=== PATIENT | female | born 1960 | race Two or more races ===

== ENCOUNTER 2020-02-08 21:24 | Emergency (ER) | payer MEDICAID, OTHER ==
[2020-02-08] MEDS ORDERED: SODIUM CHLORIDE 0.9% 1,000 ML IV STA (21:41)
[2020-02-08] MEDS ORDERED: ONDANSETRON 4 MG/2 ML VIAL IVP STA (21:41)
--- NOTE | 2020-02-08 21:55 | ED Physician Documentation ---
History of Present Illness - Stated complaint Stated Complaint: N/V, HNECK/BACK PX, BILAT FOOT SWELLING - Chief complaint Chief Complaint: General - History obtained from History obtained from: Patient - Additonal information Additional information: Patient comes emergency department complaining of lightheadedness that was mild and started yesterday which has progressed to more severe today. Patient states she is also had low back pain, chills shakes, and nausea. She states she has a very mild amount of regurgitation of liquid, but otherwise has not vomited. She states that she has not had a cough or sore throat. No shortness of breath. No dysuria. No abdominal pain. Patient denies sick contacts. She is a diabetic, but states this is diet-controlled. She denies any other medical problems. Patient also adds that she has noted some mild swelling of her bilateral lower extremities. Review of Systems Ten Systems: 10 systems reviewed and negative Constitutional: reports: Chills Eyes: reports: Reviewed and negative Ears: reports: Reviewed and negative Nose: reports: Reviewed and negative Throat: reports: Reviewed and negative Cardiac: reports: Reviewed and negative. 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 - Present Medications Home Medications: Ambulatory Orders Medication Instructions Recorded Confirmed Ondansetron Odt [Zofran] 4 mg TL Q6H PRN #10 tablet 02/09/20 Famotidine [Pepcid] 20 mg PO BID #6 tablet 02/11/20 predniSONE [Prednisone] 60 mg PO DAILY #10 tablet 02/11/20 - Allergies Allergies/Adverse Reactions: Allergies Allergy/AdvReac Type Severity Reaction Status Date / Time aspirin AdvReac Rash Verified 02/11/20 07:36 Penicillins AdvReac Rash Verified 02/11/20 07:36 - Social History Does the pt smoke?: No Smoking Status: Never smoker Does the pt drink ETOH?: No Does the pt have substance abuse?: No - Immunizations Immunizations are current?: Yes - POLST Patient has POLST: No PD ED PE NORMAL - Vitals Vital signs reviewed: Yes - General General: Alert and oriented X 3, No acute distress - HEENT HEENT: Atraumatic, PERRL, EOMI, Moist mucous membranes - Neck Neck: Supple, no meningeal sign - Cardiac Cardiac: RRR, No murmur, Strong equal pulses - Respiratory Respiratory: No respiratory distress, Clear bilaterally - Abdomen Abdomen: Soft, Non tender, Non distended - Back Back: Other (Left CVA and lower back tenderness, mild.) - Derm Derm: Normal color, Warm and dry, No rash - Extremities Extremities: No deformity, Other (Mild nonpitting edema bilateral ankles and feet.) - Neuro Neuro: Alert and oriented X 3, Other (Grossly normal) - Psych Psych: Normal mood, Normal affect Results - Vitals Vitals: Oxygen O2 Source Room air - Labs Labs: Microbiology 02/08/20 23:10 Urine Culture - Final Urine,Clean Catch Escherichia Coli Laboratory Tests 02/08/20 02/08/20 02/08/20 22:00 22:00 22:00 WBC 5.8 RBC 4.87 Hgb 14.3 Hct 41.6 MCV 85.4 MCH 29.4 MCHC 34.4 RDW 11.7 L Plt Count 174 MPV 9.6 Neut # (Auto) 4.8 Lymph # (Auto) 0.5 L Mck[place] # (Auto) 0.2 Eos # (Auto) 0.1 Baso # (Auto) 0.0 Absolute Nucleated RBC 0.00 Nucleated RBC % 0.0 Sodium 132 L Potassium 4.1 Chloride 98 L Carbon Dioxide 24 Anion Gap 10.0 BUN 12 Creatinine 0.6 Estimated GFR (MDRD) 101 Glucose 287 H Lactic Acid Calcium 8.5 Total Bilirubin 0.7 AST 20 ALT 16 Alkaline Phosphatase 97 B-Natriuretic Peptide 56 Total Protein 7.6 Albumin 3.7 Globulin 3.9 Albumin/Globulin Ratio 0.9 L Lipase 28 Urine Color Urine Clarity Urine pH Ur Specific [place] Urine Protein Urine Glucose (UA) Urine Ketones Urine Occult Blood Urine Nitrite Urine Bilirubin Urine Urobilinogen Ur Leukocyte Esterase Urine RBC Urine WBC Ur Squamous Epith Cells Urine Bacteria Ur Microscopic Review Urine Culture Comments Coronavirus (PCR) Influenza A (Rapid) Influenza B (Rapid) 02/08/20 02/08/20 02/09/20 22:00 23:10 01:30 WBC RBC Hgb Hct MCV MCH MCHC RDW Plt Count MPV Neut # (Auto) Lymph # (Auto) [place] # (Auto) Eos # (Auto) Baso # (Auto) Absolute Nucleated RBC Nucleated RBC % Sodium Potassium Chloride Carbon Dioxide Anion Gap BUN Creatinine Estimated GFR (MDRD) Glucose Lactic Acid 1.2 Calcium Total Bilirubin AST ALT Alkaline Phosphatase B-Natriuretic Peptide Total Protein Albumin Globulin Albumin/Globulin Ratio Lipase Urine Color YELLOW Urine Clarity SL. CLOUDY Urine pH 6.0 Ur Specific [place] 1.020 Urine Protein 30 H Urine Glucose (UA) >=1000 H Urine Ketones 15 H Urine Occult Blood TRACE-INTA Urine Nitrite NEGATIVE Urine Bilirubin NEGATIVE Urine Urobilinogen 2 H Ur Leukocyte Esterase NEGATIVE Urine RBC 0-5 Urine WBC 4-5 Ur Squamous Epith Cells RARE Squamous Urine Bacteria Moderate H Ur Microscopic Review INDICATED Urine Culture Comments INDICATED Coronavirus (PCR) Influenza A (Rapid) Negative Influenza B (Rapid) Negative 02/09/20 01:30 WBC RBC Hgb Hct MCV MCH MCHC RDW Plt Count MPV Neut # (Auto) Lymph # (Auto) [place] # (Auto) Eos # (Auto) Baso # (Auto) Absolute Nucleated RBC Nucleated RBC % Sodium Potassium Chloride Carbon Dioxide Anion Gap BUN Creatinine Estimated GFR (MDRD) Glucose Lactic Acid Calcium Total Bilirubin AST ALT Alkaline Phosphatase B-Natriuretic Peptide Total Protein Albumin Globulin Albumin/Globulin Ratio Lipase Urine Color Urine Clarity Urine pH Ur Specific [place] Urine Protein Urine Glucose (UA) Urine Ketones Urine Occult Blood Urine Nitrite Urine Bilirubin Urine Urobilinogen Ur Leukocyte Esterase Urine RBC Urine WBC Ur Squamous Epith Cells Urine Bacteria Ur Microscopic Review Urine Culture Comments Coronavirus (PCR) NEGATIVE Influenza A (Rapid) Influenza B (Rapid) PD MEDICAL DECISION MAKING - ED course Complexity details: reviewed old records, reviewed results, re-evaluated patient, considered differential, d/w patient ED course: Patient was worked up with labs, as well as urinalysis, and patient was treated symptomatically with IV fluids and Zofran. The pt on re-evaluation was feeling much better after fluids. Her work-up was unremarkable, with UA showing a small amount of WBC and bacteria, but no LE or nitrites. I d/w pt that I have not found an infectious focus today. The urine has been cultured, and pt will be notified if it is positive. We have discussed home management of the sx, as well as the usual indications for return. Departure - Departure Disposition: 01 Home, Self Care Clinical Impression: Dehydration, Chills (without fever) Condition: Stable Instructions: ED Dehydration Prescriptions: Ondansetron Odt [Zofran] 4 mg TL Q6H PRN #10 tablet PRN Reason: Nausea / Vomiting Comments: Your tests looked quite good, other than your blood sugar being elevated, I did not show any signs of infection. Your coated and influenza tests are still pending, but the likelihood of these being positive is low, as your symptoms are not specifically indicative of infection with either of these viruses. It is possible that you are fighting off an many common viruses that go around, or your symptoms may have been completely due to dehydration. You do not have a urinary tract infection/kidney infection, although this was originally suspected. Your urine actually looks quite good. Please be sure you drink plenty of fluid at home. You may take the nausea medicine, as needed. Please follow-up with your primary care physician if you are not feeling better in the next few days. You will be notified if your COVID test is positive. Discharge Date/Time: 02/09/20 02:14
[2020-02-08 22:06] LABS: BASOPHILS % (AUTO) 0.3 %; EOSINOPHILS # (AUTO) 0.1 10^3/uL (0.0-0.7); EOSINOPHILS % (AUTO) 1.7 %; HGB - HEMOGLOBIN 14.3 g/dL (12.0-16.0); LYMPHOCYTES # (AUTO) 0.5 10^3/uL (1.5-3.5); MEAN CORPUSCULAR HEMOGLOBIN 29.4 pg (27.0-31.0); MEAN CORPUSCULAR HGB CONC 34.4 g/dL (32.0-36.0); MEAN CORPUSCULAR VOLUME 85.4 fL (81.0-99.0); MEAN PLATELET VOLUME 9.6 fL (7.9-10.8); MONOCYTES # (AUTO) 0.2 10^3/uL (0.0-1.0); MONOCYTES % (AUTO) 3.1 %; NEUTROPHILS # (AUTO) 4.8 10^3/uL (1.5-6.6); NEUTROPHILS % (AUTO) 83.3 %; PLT - PLATELET COUNT 174 10^3/uL (130-450); RED BLOOD COUNT 4.87 10^6/uL (4.20-5.40); RED CELL DISTRIBUTION WIDTH 11.7 % (12.0-15.0); WHITE BLOOD COUNT 5.8 x10^3/uL (4.8-10.8)
[2020-02-08 22:19] LABS: ALBUMIN 3.7 g/dL (3.2-5.5); ALBUMIN/GLOBULIN RATIO 0.9 (1.0-2.2); BILIRUBIN,TOTAL 0.7 mg/dL (0.2-1.0); CALCIUM 8.5 mg/dL (8.5-10.3); CREATININE 0.6 mg/dL (0.4-1.0); TOTAL PROTEIN 7.6 g/dL (6.7-8.2)
[2020-02-08 23:21] LABS: BILIRUBIN,URINE NEGATIVE (NEGATIVE); CLARITY,URINE SL. CLOUDY (CLEAR); GLUCOSE, URINE (UA) >=1000 mg/dL (NEGATIVE); KETONES,URINE (UA) 15 mg/dL (NEGATIVE); LEUKOCYTE ESTERASE, URINE NEGATIVE (NEGATIVE); NITRITE,URINE NEGATIVE (NEGATIVE); OCCULT BLOOD,URINE TRACE-INTA (NEGATIVE); PROTEIN,URINE 30 mg/dL (NEGATIVE); UROBILINOGEN,URINE 2 E.U./dL (NORMAL)
[2020-02-08 23:28] LABS: BACTERIA,URINE Moderate /HPF (None Seen); RBC,URINE 0-5 /HPF (0-5); SQUAMOUS EPITHELIAL CELL,UR RARE Squamous (<= Few)
[2020-02-09 02:09] VITALS: BP 132/92
== END 2020-02-09 02:14 | disposition home or self-care (01) ==
LOC: ED 21:24
DX: E86.0 Dehydration (principal); R68.83 Chills (without fever); R11.0 Nausea; E11.65 Type 2 diabetes mellitus with hyperglycemia; Z11.59 Encounter for screening for other viral diseases; M54.5 Low back pain
CPT/HCPCS: 36415; 80053; 81001; 81003; 81599; 83605; 83690; 83880; 85025; 87077; 87086; 87181; 87275; 87276; 96361; 96374; 99284

== ENCOUNTER 2020-02-11 07:27 | Emergency (ER) | payer MEDICAID ==
[2020-02-11 07:36] VITALS: BP 137/71
[2020-02-11] MEDS ORDERED: DEXAMETHASONE 10 MG/ML VIAL IM STA (07:47)
[2020-02-11] MEDS ORDERED: ONDANSETRON ODT 4 MG TABLET TL STA (07:47)
[2020-02-11] MEDS ORDERED: FAMOTIDINE 20 MG TABLET PO STA (07:47)
--- NOTE | 2020-02-11 07:55 | ED Physician Documentation ---
History of Present Illness - Stated complaint Stated Complaint: RASH/ALLERGIC REACTION - Chief complaint Chief Complaint: Wound - History obtained from History obtained from: Patient - Additonal information Additional information: Patient comes emergency department complaining of hives that started yesterday evening. She states that she does not know exactly what caused it. She has not used any new soaps or lotions, and states that everything she ate yesterday she has eaten before. She does state that she has some Ramen noodles prior to onset of the rash, but that she only ate a little bit because she has been sick recently with nausea and has not regained her appetite completely. Patient states she ate 2 bites of noodles and drink the broth and then began to feel nauseated. She states she vomited just a slight bit of fluid from her stomach. The rash began sometime after this. Patient began to notice itching on her leg and then this progressed to her medial thighs, trunk, and neck. Patient has also noticed a little bit on her arms. No oropharyngeal edema. Patient states that she used to get hives regularly as a child, but that this stopped when she was 10 years old. She states she has had only mild reactions since but never one this extensive. Patient has taken Benadryl at home which she is found to be only mildly helpful. No other complaints at this time. Review of Systems Ten Systems: 10 systems reviewed and negative Constitutional: reports: Reviewed and negative Eyes: reports: Reviewed and negative Ears: reports: Reviewed and negative Nose: reports: Reviewed and negative Throat: reports: Reviewed and negative Cardiac: reports: Reviewed and negative Respiratory: reports: Reviewed and negative GI: reports: Reviewed and negative : reports: Reviewed and negative Skin: reports: Rash Musculoskeletal: reports: Reviewed and negative Neurologic: reports: Reviewed and negative Psychiatric: reports: Reviewed and negative Endocrine: reports: Reviewed and negative Immunocompromised: reports: Reviewed and negative PD PAST MEDICAL HISTORY - Past Medical History Past Medical History: Yes Endocrine/Autoimmune: Type 2 diabetes GI: Ulcers - Past Surgical History 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 - Present Medications Home Medications: Ambulatory Orders Medication Instructions Recorded Confirmed Ondansetron Odt [Zofran] 4 mg TL Q6H PRN #10 tablet 02/09/20 Famotidine [Pepcid] 20 mg PO BID #6 tablet 02/11/20 predniSONE [Prednisone] 60 mg PO DAILY #10 tablet 02/11/20 - Allergies Allergies/Adverse Reactions: Allergies Allergy/AdvReac Type Severity Reaction Status Date / Time aspirin AdvReac Rash Verified 02/11/20 07:36 Penicillins AdvReac Rash Verified 02/11/20 07:36 - Social History Does the pt smoke?: No Smoking Status: Never smoker Does the pt drink ETOH?: No Does the pt have substance abuse?: No - Immunizations Immunizations are current?: Yes - POLST Patient has POLST: No PD ED PE NORMAL - Vitals Vital signs reviewed: Yes - General General: Alert and oriented X 3, No acute distress - HEENT HEENT: Atraumatic, PERRL, EOMI, Moist mucous membranes, Other (No oral pharyngeal edema.) - Neck Neck: Supple, no meningeal sign - Cardiac Cardiac: RRR, No murmur, Strong equal pulses - Respiratory Respiratory: No respiratory distress, Clear bilaterally, Other (No stridor. Respirations nonlabored.) - Abdomen Abdomen: Soft, Non tender, Non distended - Derm Derm: Warm and dry, Other (Coalesced urticaria noted over patient's anteromedial thighs, diffusely about the patient's trunk, bilateral proximal arms, and anterior neck.) - Extremities Extremities: No deformity, No edema, No calf tenderness / cord - Neuro Neuro: Alert and oriented X 3, Normal speech - Psych Psych: Normal mood, Normal affect Results - Vitals Vitals: Vital Signs - 24 hr 02/11/20 07:29 Temperature 35.9 C L Heart Rate 90 Respiratory 16 Rate Blood Pressure 137/71 H O2 Saturation 99 Oxygen O2 Source Room air PD MEDICAL DECISION MAKING - ED course Complexity details: considered differential, d/w patient ED course: The patient had just had Benadryl 1 hour ago and so she was given Pepcid and IM Decadron. She was also given a dose of Zofran as she has been nauseated. I discussed with the patient that I am not sure what has caused her allergic reaction--it could be the Ramen noodles, although she has had these before with no problem. I encouraged her to keep a journal of exposures, should this happen again, so she can look for a common thread. The patient states she is in the process of getting a primary care physician and I have advised her that it is important that she do this, given her diabetes. Given the patient prescriptions for prednisone and for Pepcid for at home, to take with her Benadryl. We have discussed home management of the symptoms, as well as usual indications for return Departure - Departure Disposition: 01 Home, Self Care Clinical Impression: Allergic reaction Qualifiers: Encounter type: initial encounter Qualified Code(s): T78.40XA - Allergy, u nspecified, initial encounter Condition: Stable Instructions: ED Allergic Reaction General Other Prescriptions: Famotidine [Pepcid] 20 mg PO BID #6 tablet predniSONE [Prednisone] 60 mg PO DAILY #10 tablet Comments: It is not clear what is caused her allergic reaction today. It is most likely something you ate or otherwise took into your body, based on the general nature of the rash and its widespread. It is recommended that you keep a record of everything you were exposed to the day that your reaction happened. Keep this record in case you have another reaction, see you can compare exposures at that time. You may continue to take 25 to 50 mg of Benadryl every 4-6 hours as needed for the allergic rash. You should also take prednisone and Pepcid along with the Benadryl to further combat the reaction. If you begin to develop swelling of your tongue or in your throat, please return to the emergency department immediately.
== END 2020-02-11 08:45 | disposition home or self-care (01) ==
LOC: ED 07:27
DX: L50.0 Allergic urticaria (principal); T78.40XA Allergy, unspecified, initial encounter; X58.XXXA Exposure to other specified factors, initial encounter; R11.0 Nausea; E11.9 Type 2 diabetes mellitus without complications
CPT/HCPCS: 96372; 99283; 99284; A9270; Q0162

== ENCOUNTER 2020-05-28 15:15 | Emergency (ER) | payer MEDICAID ==
[2020-05-28 15:22] VITALS: BP 151/82
--- NOTE | 2020-05-28 15:41 | ED Physician Documentation ---
PD HPI LOWER EXT INJURY - Stated complaint Stated Complaint: LEG INJ - Chief complaint Chief Complaint: Trauma Ext - History obtained from History obtained from: Patient - History of Present Illness PD HPI LOW EXT INJURY LOCATION: Right, Knee, Lower leg Type of injury: Fall, Twist (she states she missed step and fell to side/forward with twisting of right knee/lower leg and impacted the ground with lateral knee. Pain in lateral knee and side of lower leg. Denies other injury. Did not strike head.) Where injury occurred: Home Timing - onset: Today Timing - details: Abrupt onset, Still present (hurts with walking and with bending knee.) Worsened by: Moving, Palpating (lateral knee area.) Associated symptoms: No: Weakness, Numbness, Swelling Similar symptoms before: Has not had sx before Review of Systems Constitutional: denies: Fever Nose: denies: Rhinorrhea / runny nose, Congestion Throat: denies: Sore throat Respiratory: denies: Cough Skin: denies: Abrasion (s), Laceration (s) Musculoskeletal: denies: Joint swelling Neurologic: denies: Focal weakness, Numbness, Altered mental status, Headache, Head injury, LOC PD PAST MEDICAL HISTORY - Past Medical History Cardiovascular: None Respiratory: None Neuro: None Endocrine/Autoimmune: Type 2 diabetes (diet controlled) GI: Ulcers Musculoskeletal: None - Past Surgical History 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 - Present Medications Home Medications: Ambulatory Orders Medication Instructions Recorded Confirmed Ondansetron Odt [Zofran] 4 mg TL Q6H PRN #10 tablet 02/09/20 Famotidine [Pepcid] 20 mg PO BID #6 tablet 02/11/20 predniSONE [Prednisone] 60 mg PO DAILY #10 tablet 02/11/20 Hydrocodone/Acetaminophen 1 each PO Q6H PRN #10 tablet 05/28/20 [Hydrocodone-Acetamin 5-325 mg] - Allergies Allergies/Adverse Reactions: Allergies Allergy/AdvReac Type Severity Reaction Status Date / Time aspirin AdvReac Rash Verified 05/28/20 15:18 Penicillins AdvReac Rash Verified 05/28/20 15:18 - Social History Does the pt smoke?: No Smoking Status: Never smoker Does the pt drink ETOH?: No Does the pt have substance abuse?: No - Immunizations Immunizations are current?: Yes - POLST Patient has POLST: No PD ED PE NORMAL - Vitals Vital signs reviewed: Yes - General General: Alert and oriented X 3, No acute distress, Well developed/nourished, Other (has her own pair of crutches) - Derm Derm: Normal color, Warm and dry - Extremities Extremities: Other (right lateral knee focally tender. Cruciate testing without pain nor laxity. Valgus stress does not hurt medially. Does cause some lateral pain. Rotation of lower leg passively causes some pain laterally. Hamstrings not tender. No knee effusion. Mid fibular area with some tenderness. Ankle not tendr) - Neuro Neuro: Alert and oriented X 3, No motor deficit, No sensory deficit, Normal speech Results - Vitals Vitals: Vital Signs - 24 hr 05/28/20 15:19 Temperature 36.5 C Heart Rate 88 Respiratory 16 Rate Blood Pressure 151/82 H O2 Saturation 99 Oxygen O2 Source Room air - Rads (name of study) tib/fib right Radiology: Prelim report reviewed (No fractures), EMP read contemporaneously (I think there is nondisplaced avulsion fracture off lateral part of the proximal fibular head. ), See rad report PD MEDICAL DECISION MAKING - ED course Complexity details: reviewed results (Radiologist says no fractures, but I think there is a nondisplaced fracture off the proximal fibular head. It would be treated with knee brace and not needing more aggresively. ), considered differential, d/w patient Departure - Departure Disposition: 01 Home, Self Care Clinical Impression: Avulsion of head of fibula Knee strain Qualifiers: Encounter type: initial encounter Laterality: right Qualified Code(s): S86.911A - Strain of unspecified muscle(s) and tendon(s) at lower leg level, right leg, initial encounter Accidental fall Qualifiers: Encounter type: initial encounter Qualified Code(s): W19.XXXA - Unspecified fall, initial encounter Condition: Stable Record reviewed to determine appropriate education?: Yes Instructions: ED Sprain Knee Follow-Up: Eusbeio Stroud MD [Provider Admit Priv/Credential] - Prescriptions: Hydrocodone/Acetaminophen [Hydrocodone-Acetamin 5-325 mg] 1 each PO Q6H PRN #10 tablet PRN Reason: Pain Comments: Use the knee immobilizer when up and around for the next couple of weeks. Crutches as needed for partial weightbearing to help support. Tylenol 4 times a day for pain. Add pain medicine if needed. This is likely a knee strain of the ligaments and muscles. On x-ray there is a possibility of a small avulsion fracture off the head of the fibula. This would get treated similarly with a knee brace, but could take a few weeks for healing. Recheck with Ortho in about 8-10 days to ensure this is healing well. Call Saturday for an appt. Discharge Date/Time: 05/28/20 17:06
[2020-05-28] MEDS ORDERED: ACETAMINOPHEN 325 MG TABLET PO STA (15:52)
[2020-05-28] MEDS ORDERED: IBUPROFEN 600 MG TABLET PO STA (15:52)
--- NOTE | 2020-05-28 16:24 | XRAY Report ---
PROCEDURE: Tib/Fib RT INDICATIONS: fall with twisting lower leg; pain lateral knee/fib TECHNIQUE: 2 views of the tibia and fibula were acquired. COMPARISON: None available FINDINGS: Bones: No fractures or dislocations. No suspicious bony lesions. Soft tissues: No suspicious soft tissue calcifications or masses. A small joint effusion is seen. IMPRESSION: Small joint effusion. No displaced fractures are seen on this plain film. In this patient with a given history of trauma, please correlate with focal tenderness. If clinically appropriate, please consider a short-term follow-up plain films series versus a dedicated CT study. Reviewed by: Ervin Luis MD on 05/28/2020 3:23 PM [facility] Approved by: Ervin Luis MD on 05/28/2020 3:23 PM [facility] Station ID: [id number]
== END 2020-05-28 17:06 | disposition home or self-care (01) ==
LOC: ED 15:15
DX: S86.911A Strain of unspecified muscle(s) and tendon(s) at lower leg level, right leg, initial encounter (principal); W10.9XXA Fall (on) (from) unspecified stairs and steps, initial encounter; X50.1XXA Overexertion from prolonged static or awkward postures, initial encounter; Y92.009 Unspecified place in unspecified non-institutional (private) residence as the place of occurrence of the external cause; E11.9 Type 2 diabetes mellitus without complications
CPT/HCPCS: 73590; 99283; A9270

== ENCOUNTER 2021-03-15 19:32 | Emergency (ER) | payer MEDICAID ==
[2021-03-15] MEDS ORDERED: methocarbamoL 500 MG TABLET PO STA (20:16)
[2021-03-15] MEDS ORDERED: KETOROLAC 60 MG/2 ML VIAL IM STA (20:16)
[2021-03-15] MEDS ORDERED: HYDROmorphone 1 MG/ML CARPUJECT IM STA (20:16)
--- NOTE | 2021-03-15 20:30 | ED Physician Documentation ---
PD HPI BACK PAIN - Stated complaint Stated Complaint: back px,swollen & numb feet - Chief complaint Chief Complaint: Back Pain - History obtained from History obtained from: Patient - History of Present Illness Timing - onset: Chronic Pain level max: 10 Pain level now: 10 Location: Upper, Mid, Lower, Right, Left Quality: Pain, Spasm Associated symptoms: No: Fever, Weakness, Numbness, Incontinent of urine, Unable to urinate, Hematuria, Incontinent of stool Improves with: Rest Worsened by: Movement Contributing factors: No: Lifting, Twisting, Trauma, Anticoagulated, Cancer, IVDA, Out of meds Recently seen: Not recently seen - Additional information Additional information: Patient is a 61-year-old female who presents to the emergency department with back pain and spasm. Worsening over the past 3 days. She states she has had chronic back pain since she was 6 months old. She states that she is constantly lifting and twisting. Does not recall any specific injury this time. She states that she has not taken anything for the pain at home because she is allergic to aspirin. Worse with movement, better with rest. She has chronic numbness in her bilateral feet as well. This is not new. It is unchanged from prior. No loss of bowel or bladder control. 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 : None HEENT: None Psych: None Musculoskeletal: None Derm: None - Past Surgical History Past Surgical History: Yes /SUPERVISOR INSTRUMENT REPAIR: Tubal ligation - Present Medications Home Medications: Ambulatory Orders Medication Instructions Recorded Confirmed Ibuprofen [Motrin] 800 mg PO Q8H PRN #30 tablet 03/15/21 Oxycodone HCl/Acetaminophen 1 - 2 each PO Q6H PRN #14 tablet 03/15/21 [Percocet 5-325 mg Tablet] methocarbamoL [Robaxin] 500 mg PO Q6H PRN #20 tablet 03/15/21 - Allergies Allergies/Adverse Reactions: Allergies Allergy/AdvReac Type Severity Reaction Status Date / Time aspirin AdvReac Rash Verified 03/15/21 19:43 Penicillins AdvReac Rash Verified 03/15/21 19:43 - Social History Does the pt smoke?: No Smoking Status: Never smoker Does the pt drink ETOH?: No Does the pt have substance abuse?: No - Immunizations Immunizations are current?: Yes - POLST Patient has POLST: No PD ED PE NORMAL - Vitals Vital signs reviewed: Yes - General General: Alert and oriented X 3, No acute distress, Well developed/nourished - HEENT HEENT: PERRL, Moist mucous membranes - Neck Neck: Supple, no meningeal sign - Cardiac Cardiac: RRR, Strong equal pulses - Respiratory Respiratory: No respiratory distress, Clear bilaterally - Abdomen Abdomen: Soft, Non tender, Non distended - Back Back: No spinal TTP (No midline tenderness to palpation or percussion along the cervical, thoracic or lumbar spines. There is para spinal spasm in the mid to lower thoracic and upper to mid lumbar spines.) - Derm Derm: Warm and dry, No rash - Extremities Extremities: No deformity - Neuro Neuro: Alert and oriented X 3, No motor deficit, No sensory deficit, Other (Normal bilateral lower extremity patellar and ankle jerk reflexes. Normal great toe extension bilaterally. no saddle anesthesia) - Psych Psych: Normal mood, Normal affect Results - Vitals Vitals: Vital Signs - 24 hr 03/15/21 03/15/21 03/15/21 19:37 20:07 21:00 Temperature 36.8 C Heart Rate 103 H 98 94 Respiratory 18 17 16 Rate Blood Pressure 183/80 H 162/82 H 170/82 H O2 Saturation 99 99 94 03/15/21 03/15/21 21:12 21:37 Temperature Heart Rate 90 Respiratory 15 15 Rate Blood Pressure 152/72 H O2 Saturation 95 Oxygen O2 Source Room air - Rads (name of study) Thoracic spine x-ray Radiology: Final report received, EMP read contemporaneously, See rad report Lumbar spine x-ray Radiology: Prelim report reviewed, EMP read contemporaneously, See rad report PD MEDICAL DECISION MAKING - ED course Complexity details: reviewed results, re-evaluated patient, considered differential (No cauda equina, no spinal epidural abscess, no fracture, no aortic dissection or evidence of aneursym rupture), d/w patient, d/w family ED course: Patient was given Toradol, Dilaudid and Robaxin. Pain greatly improved. Ambulating well. Appears to have chronic back pain. No acute findings on x- ray. We will place on pain medication for home and have her follow-up with her doctor for further care. May benefit from physical therapy. I am prescribing a short course of short-acting opioid pain medication for this patient. I have reviewed the patients BACK END ENGINEER and no concerning findings were noted. I have discussed that the opioids are for short term therapy only, and will not be refilled from the ED. patient counseled regarding signs and symptoms for which I believe and urgent re-evaluation would be necessary. Patient with good understanding of and agreement to plan and is comfortable going home at this time This document was made in part using voice recognition software. While efforts are made to proofread this document, sound alike and grammatical errors may occur. Departure - Departure Disposition: Home, Self Care Clinical Impression: Back spasm Condition: Good Instructions: ED Spasm Back No Trauma Follow-Up: your,doctor in 1 week [Other] Prescriptions: Ibuprofen [Motrin] 800 mg PO Q8H PRN #30 tablet PRN Reason: PAIN &/OR FEVER Oxycodone HCl/Acetaminophen [Percocet 5-325 mg Tablet] 1 - 2 each PO Q6H PRN #14 tablet PRN Reason: pain methocarbamoL [Robaxin] 500 mg PO Q6H PRN #20 tablet PRN Reason: muscle spasm Comments: Follow-up with your doctor for further care. You may benefit from physical therapy. Continue to gently stretch your back at home. I am prescribing a short course of narcotic pain medication for you. These are potentially dangerous and addictive medications that should be used carefully. These medications may constipate you. Take an uknr-xjx-lfomdbd stool softener (docusate) twice daily with plenty of water while taking these medications. If you go 24 hours without a bowel movement, take gllm-npt-payqkom miralax, per package instructions. Do not drink or drive while taking these medications. If you received narcotic or sedating medications while in the emergency department, do not drive for 24 hours. Store this medication in a safe, secure place and out of reach of children. It is a violation of federal law to give or sell this medication to another person or to use in a manner other than prescribed. The ED will not refill narcotic prescriptions, including prescriptions lost or stolen. To dispose of unwanted medications: 1. [facility] at [address] in [place] has a medication drop box. They accept prescription medications (in pill form) Saturday through Saturday 9:00 a.m. to 5:00 p.m. 2. The [facility] [employer] accepts prescription medications (in pill form only) for disposal year round. Call for more information. 3. Contact the [facility] for the next [facility] sponsored prescription drug collection event. , [phone], or [phone];
[2021-03-15 21:39] VITALS: BP 152/72
--- NOTE | 2021-03-15 21:50 | XRAY Report ---
PROCEDURE: Thoracic Spine 2 View INDICATIONS: back pain TECHNIQUE: 3 views of the thoracic spine were acquired. COMPARISON: None. FINDINGS: Bones: No fractures or dislocations. Scattered multilevel endplate spurring and diffuse facet arthro king. No definite disc space narrowing Soft tissues: No paravertebral stripe thickening. IMPRESSION: No fracture. Diffuse spondylitic changes. Reviewed by: Wili East MD on 03/15/2021 9:48 PM PDT Approved by: Wili East MD on 03/15/2021 9:48 PM PDT Station ID: [id number]
--- NOTE | 2021-03-15 21:51 | XRAY Report ---
PROCEDURE: Lumbar Spine 2 View INDICATIONS: back pain TECHNIQUE: 2 views of the lumbar spine were acquired. COMPARISON: None. FINDINGS: No acute fracture identified. Scattered multilevel endplate spurring and diffuse facet arthropathy. Trace anterolisthesis of L4 on L5. No definite disc space narrowing. Minimal levocurvature. IMPRESSION: Minimal levocurvature and trace anterolisthesis of L4 on L5. Minimal lower lumbar spondylosis. Reviewed by: Wili East MD on 03/15/2021 9:50 PM PDT Approved by: Wili East MD on 03/15/2021 9:50 PM PDT Station ID: [id number]
== END 2021-03-15 22:10 | disposition home or self-care (01) ==
LOC: ED 19:32
DX: M62.830 Muscle spasm of back (principal); M47.814 Spondylosis without myelopathy or radiculopathy, thoracic region; M47.816 Spondylosis without myelopathy or radiculopathy, lumbar region; E11.9 Type 2 diabetes mellitus without complications; Z88.6 Allergy status to analgesic agent
CPT/HCPCS: 72070; 72100; 96372; 99283; 99284; A9270; J1170

== ENCOUNTER 2022-11-09 09:23 | Emergency (ER) | payer MEDICAID ==
[2022-11-09 10:33] LABS: BASOPHILS # (AUTO) 0.1 10^3/uL (0.0-0.1); BASOPHILS % (AUTO) 0.6 %; EOSINOPHILS # (AUTO) 0.3 10^3/uL (0.0-0.7); EOSINOPHILS % (AUTO) 3.4 %; HCT - HEMATOCRIT 39.2 % (37.0-47.0); HGB - HEMOGLOBIN 13.1 g/dL (12.0-16.0); LYMPHOCYTES # (AUTO) 2.3 10^3/uL (1.5-3.5); LYMPHOCYTES % (AUTO) 26.4 %; MEAN CORPUSCULAR HEMOGLOBIN 28.2 pg (27.0-31.0); MEAN CORPUSCULAR HGB CONC 33.4 g/dL (32.0-36.0); MEAN CORPUSCULAR VOLUME 84.3 fL (81.0-99.0); MEAN PLATELET VOLUME 10.4 fL (7.9-10.8); MONOCYTES # (AUTO) 0.7 10^3/uL (0.0-1.0); MONOCYTES % (AUTO) 8.2 %; NEUTROPHILS # (AUTO) 5.4 10^3/uL (1.5-6.6); NEUTROPHILS % (AUTO) 61.1 %; PLT - PLATELET COUNT 268 10^3/uL (130-450); RED BLOOD COUNT 4.65 10^6/uL (4.20-5.40); RED CELL DISTRIBUTION WIDTH 11.7 % (12.0-15.0); WHITE BLOOD COUNT 8.9 x10^3/uL (4.8-10.8)
[2022-11-09 11:11] LABS: ALBUMIN 2.7 g/dL (3.2-5.5); ALBUMIN/GLOBULIN RATIO 0.6 (1.0-2.2); BILIRUBIN,TOTAL 0.6 mg/dL (0.2-1.0); CALCIUM 9.1 mg/dL (8.5-10.3); CREATININE 0.9 mg/dL (0.4-1.0); POTASSIUM 4.4 mmol/L (3.5-5.0); TOTAL PROTEIN 7.1 g/dL (6.7-8.2)
--- NOTE | 2022-11-09 11:17 | XRAY Report ---
PROCEDURE: Chest 1 View X-Ray INDICATIONS: Chest pain TECHNIQUE: One view of the chest was acquired. COMPARISON: None. FINDINGS: Surgical changes and devices: None. Lungs and pleura: No pleural effusions or pneumothorax. Lungs are clear. Mediastinum: Mediastinal contours appear normal. Heart size is normal. Bones and chest wall: No suspicious bony lesions. Overlying soft tissues appear unremarkable. IMPRESSION: No evidence acute pulmonary process. Reviewed by: Arnel Guzman MD on 11/09/2022 11:16 AM [facility] Approved by: Arnel Guzman MD on 11/09/2022 11:16 AM [facility] Station ID: [id number]
--- NOTE | 2022-11-09 11:32 | ED Physician Documentation ---
History of Present Illness - Stated complaint Stated Complaint: BILAT FOOT SWELLING - Chief complaint Chief Complaint: General - History obtained from History obtained from: Patient - History of Present Illness Timing: How many days ago (3) - Additonal information Additional information: increased swelling and pain in the right knee Review of Systems Constitutional: reports: Chills. denies: Fever Eyes: denies: Photophobia Ears: denies: Ear pain Nose: denies: Rhinorrhea / runny nose, Congestion Throat: denies: Sore throat Cardiac: denies: Chest pain / pressure, Palpitations Respiratory: denies: Dyspnea, Cough GI: reports: Nausea. denies: Abdominal Pain, Vomiting : denies: Dysuria, Frequency, Discharge Musculoskeletal: reports: Back pain, Extremity pain, Joint pain, Extremity swelling, Joint swelling, Pain with weight bearing. 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 : None HEENT: None Psych: None Musculoskeletal: None Derm: None - Past Surgical History Past Surgical History: Yes /SAUSAGE COOKER: Tubal ligation - Present Medications Home Medications: Ambulatory Orders Medication Instructions Recorded Confirmed Ibuprofen [Motrin] 800 mg PO Q8H PRN #30 tablet 03/15/21 Oxycodone HCl/Acetaminophen 1 - 2 each PO Q6H PRN #14 tablet 03/15/21 [Percocet 5-325 mg Tablet] methocarbamoL [Robaxin] 500 mg PO Q6H PRN #20 tablet 03/15/21 - Allergies Allergies/Adverse Reactions: Allergies Allergy/AdvReac Type Severity Reaction Status Date / Time aspirin AdvReac Rash Verified 11/09/22 09:32 Penicillins AdvReac Rash Verified 11/09/22 09:32 - Social History Does the pt smoke?: No Smoking Status: Never smoker Does the pt drink ETOH?: No Does the pt have substance abuse?: No - Immunizations Immunizations are current?: Yes - POLST Patient has POLST: No PD ED PE NORMAL - Vitals Vital signs reviewed: Yes (hypertensive mild ) - General General: Alert and oriented X 3, No acute distress, Well developed/nourished - HEENT HEENT: Atraumatic, PERRL, EOMI, Other (dry mucous membranes ) - Neck Neck: Supple, no meningeal sign, No bony TTP - Cardiac Cardiac: RRR, No murmur - Respiratory Respiratory: No respiratory distress, Clear bilaterally - Abdomen Abdomen: Soft, Non tender - Back Back: No CVA TTP, No spinal TTP - Derm Derm: Normal color, Warm and dry, No rash - Extremities Extremities: No deformity, Other (There is non-pitting edema to the LE. The feet do not appear to be involved today. ) - Neuro Neuro: Alert and oriented X 3, packaging specialist 2-12 intact, No motor deficit, No sensory deficit, Normal speech Eye Opening: Spontaneous Motor: Obeys Commands Verbal: Oriented GCS Score: 15 - Psych Psych: Normal mood, Normal affect Results - Vitals Vitals: Vital Signs - 24 hr 11/09/22 11/09/22 11/09/22 09:28 12:04 14:48 Temperature 36.7 C Heart Rate 86 86 86 Respiratory 20 17 15 Rate Blood Pressure 150/74 H 159/72 H O2 Saturation 99 94 98 Oxygen O2 Source Room air - Labs Labs: Laboratory Tests 11/09/22 11/09/22 11/09/22 10:28 10:28 10:54 WBC 8.9 RBC 4.65 Hgb 13.1 Hct 39.2 MCV 84.3 MCH 28.2 MCHC 33.4 RDW 11.7 L Plt Count 268 MPV 10.4 Neut # (Auto) 5.4 Lymph # (Auto) 2.3 Ellis # (Auto) 0.7 Eos # (Auto) 0.3 Baso # (Auto) 0.1 Absolute Nucleated RBC 0.00 Nucleated RBC % 0.0 Sodium 134 L Potassium 4.4 Chloride 97 L Carbon Dioxide 27 Anion Gap 10.0 BUN 29 H Creatinine 0.9 Estimated GFR (MDRD) 63 L Glucose 389 H Calcium 9.1 Total Bilirubin 0.6 AST 13 ALT 14 Alkaline Phosphatase 83 Troponin I High Sens 6.8 B-Natriuretic Peptide Total Protein 7.1 Albumin 2.7 L Globulin 4.4 H Albumin/Globulin Ratio 0.6 L Lipase 30 11/09/22 11:44 WBC RBC Hgb Hct MCV MCH MCHC RDW Plt Count MPV Neut # (Auto) Lymph # (Auto) Ellis # (Auto) Eos # (Auto) Baso # (Auto) Absolute Nucleated RBC Nucleated RBC % Sodium Potassium Chloride Carbon Dioxide Anion Gap BUN Creatinine Estimated GFR (MDRD) Glucose Calcium Total Bilirubin AST ALT Alkaline Phosphatase Troponin I High Sens B-Natriuretic Peptide 43 Total Protein Albumin Globulin Albumin/Globulin Ratio Lipase - Rads (name of study) knee Radiology: Prelim report reviewed (Impression: Moderate tricompartmental osteoarthritis. Small knee joint effusion.), EMP read indepedently, See rad rep ort chest Radiology: Prelim report reviewed (Impression: No evidence of acute pulmonary process.), EMP read indepedently, See rad report Procedures - IVC sono (time) 1120 Bedside IVC sono: IVC measures (cm) (0.92), Dehydration (est 1-2 liter deficit) PD Medical Decision Making - ED course Complexity details: reviewed old records, reviewed results, re-evaluated patient, considered differential, d/w patient, d/w family ED course: 4-year-old female with a history of diabetes and noncompliance is found to be significantly dehydrated on interrogation of her inferior vena cava by POCUS. She is administered intravenous fluid with marked improvement. She has a blood sugar of 389 consistent with her diabetes being out of control. Her symptoms were much improved with fluid and 10 units of insulin. She received 30 mg of Toradol intravenously with improvement in her pain as well. A check of her record indicates this scenario has happened to the patient previously. She was on metformin at 1 time but did not tolerated and has been noncompliant since. She has not seen a doctor in more than 3 years. I inadvertently did not put in the patient's medications after my initial evaluation and there was a delay before treatment began. I indicated to the patient that the only way I could repay her for this lost time was to give her the advice that she should seek control of her diabetes. Departure - Departure Disposition: 01 Home, Self Care Clinical Impression: Dehydration, Arthritis of left knee Diabetes mellitus out of control Qualifiers: Diabetes mellitus type: type 2 Glycemic state: with hyperglycemia Qualified Code(s): E11.65 - Type 2 diabetes mellitus with hyperglycemia Condition: Stable Instructions: ED Hyperglycemia Diabetic, ED Dehydration, ED Diet Diabetic Follow-Up: Acacia Fitzgerald STUNT MAN [Provider Admit Priv/Credential] - Comments: Robyn, today it looks like the majority of your symptoms are from your diabetes being out of control. A blood sugar of 389 will generally cause you to be dehydrated and symptoms of dehydration include muscle spasms, weakness, co nfusion and slow responses. Generally the worse the dehydration the worst the symptoms. Today we are able to provide some IV hydration and some IV insulin. A follow-up with a primary care doctor is imperative to have some general overall improvement. My recommendation to you going forward is to attempt to gain control of your diabetes. This will require several visits to the doctor and maybe several trials of medication. Since you do not tolerate metformin we will not try that again. Discharge Date/Time: 11/09/22 15:14
[2022-11-09] MEDS ORDERED: KETOROLAC 30 MG/ML VIAL IVP STA (12:43)
[2022-11-09] MEDS ORDERED: SODIUM CHLORIDE 0.9% 1,000 ML IV STA (12:43)
[2022-11-09] MEDS ORDERED: INSULIN REGULAR HUMAN 100 UNIT/1 ML 10 ML MDV IVP STA (12:43)
--- NOTE | 2022-11-09 13:08 | XRAY Report ---
PROCEDURE: Knee 4 View LT INDICATIONS: swelling and pain with weight bearing. TECHNIQUE: 4 views of the left knee(s) were acquired. COMPARISON: None. FINDINGS: Bones: Tricompartmental joint space narrowing with associated osteophytosis. Soft tissues: Small joint effusion. No suspicious soft tissue calcifications. IMPRESSION: Moderate tricompartmental osteoarthritis. Small knee joint effusion. Reviewed by: Qamar Baca on 11/09/2022 1:07 PM PST Approved by: Qamar Baca on 11/09/2022 1:07 PM PST Station ID: [id number]
[2022-11-09 14:49] VITALS: BP 159/72
== END 2022-11-09 15:14 | disposition home or self-care (01) ==
LOC: ED 09:23
DX: E86.0 Dehydration (principal); M17.12 Unilateral primary osteoarthritis, left knee; E11.65 Type 2 diabetes mellitus with hyperglycemia
CPT/HCPCS: 36415; 80053; 83690; 83880; 84484; 85025; 93005; 96361; 96374; 99284

== ENCOUNTER 2023-09-20 12:09 | Emergency (ER) | payer MEDICAID, MEDICARE, OTHER ==
[2023-09-20 12:52] LABS: BASOPHILS # (AUTO) 0.1 10^3/uL (0.0-0.1); BASOPHILS % (AUTO) 0.7 %; EOSINOPHILS # (AUTO) 0.2 10^3/uL (0.0-0.7); EOSINOPHILS % (AUTO) 2.1 %; HCT - HEMATOCRIT 36.9 % (37.0-47.0); HGB - HEMOGLOBIN 11.9 g/dL (12.0-16.0); LYMPHOCYTES # (AUTO) 1.7 10^3/uL (1.5-3.5); LYMPHOCYTES % (AUTO) 19.9 %; MEAN CORPUSCULAR HEMOGLOBIN 29.8 pg (27.0-31.0); MEAN CORPUSCULAR HGB CONC 32.2 g/dL (32.0-36.0); MEAN CORPUSCULAR VOLUME 92.3 fL (81.0-99.0); MEAN PLATELET VOLUME 9.6 fL (7.9-10.8); MONOCYTES # (AUTO) 0.7 10^3/uL (0.0-1.0); MONOCYTES % (AUTO) 7.9 %; NEUTROPHILS # (AUTO) 5.9 10^3/uL (1.5-6.6); PLT - PLATELET COUNT 387 10^3/uL (130-450); RED CELL DISTRIBUTION WIDTH 12.5 % (12.0-15.0); WHITE BLOOD COUNT 8.5 x10^3/uL (4.8-10.8)
[2023-09-20 13:10] LABS: CALCIUM 8.4 mg/dL (8.5-10.3); CREATININE 1.4 mg/dL (0.6-1.3); POTASSIUM 4.8 mmol/L (3.5-4.5)
[2023-09-20] MEDS ORDERED: FUROSEMIDE 40 MG/4 ML VIAL IVP STA (13:13)
--- NOTE | 2023-09-20 13:14 | XRAY Report ---
PROCEDURE: Chest 1V INDICATIONS: DYSPNEA TECHNIQUE: One view of the chest was acquired. COMPARISON: None. FINDINGS: Surgical changes and devices: None. Lungs and pleura: Slight bilateral pleural effusions, no pneumothorax. Lungs are mildly edematous. Mediastinum: Mediastinal contours appear normal. Heart size is normal. Bones and chest wall: No suspicious bony lesions. Overlying soft tissues appear unremarkable. IMPRESSION: Mild pulmonary edema with slight bibasilar subpulmonic pleural effusions. No consolidative pneumonia found. Reviewed by: Harjit Galaviz MD on 09/20/2023 1:13 PM PST Approved by: Harjit Galaviz MD on 09/20/2023 1:13 PM PST Station ID: [id number]
--- NOTE | 2023-09-20 13:18 | ED Physician Documentation ---
PD HPI CHEST PAIN - Stated complaint Stated Complaint: SOA/DIZZY/HIGH BP - Chief complaint Chief Complaint: Resp - History obtained from History obtained from: Patient - Additional information Additional information: 63-year-old female with type 2 diabetes and reports history of kidney issues in the past presents the emergency department today for increased weakness over last 3 to 5 days she has been noticing some increased bilateral lower extremity swelling and is feeling like she is hearing some gurgling in her lungs and having more shortness of breath with ambulation. She denies any chest pain no recent fevers or chills and denies any history of heart failure.She lives at home with family and is normally independent. PD PAST MEDICAL HISTORY - Past Medical History Cardiovascular: None Respiratory: None Neuro: None Endocrine/Autoimmune: Type 2 diabetes GI: Ulcers SODA DISPENSER: None : None HEENT: None Psych: None Musculoskeletal: None Derm: None - Past Surgical History Past Surgical History: Yes /SODA DISPENSER: Tubal ligation - Present Medications Home Medications: Ambulatory Orders Medication Instructions Recorded Confirmed Ibuprofen [Motrin] 800 mg PO Q8H PRN #30 tablet 03/15/21 Oxycodone HCl/Acetaminophen 1 - 2 each PO Q6H PRN #14 tablet 03/15/21 [Percocet 5-325 mg Tablet] methocarbamoL [Robaxin] 500 mg PO Q6H PRN #20 tablet 03/15/21 Furosemide [Lasix] 40 mg PO DAILY #3 tablet 09/20/23 Lisinopril [Zestril] 10 mg PO DAILY #30 tablet 09/20/23 - Allergies Allergies/Adverse Reactions: Allergies Allergy/AdvReac Type Severity Reaction Status Date / Time aspirin AdvReac Rash Verified 11/09/22 09:32 Penicillins AdvReac Rash Verified 11/09/22 09:32 - Social History Does the pt smoke?: No Smoking Status: Never smoker Does the pt drink ETOH?: No Does the pt have substance abuse?: No - Immunizations Immunizations are current?: Yes - POLST Patient has POLST: No PD ED PE NORMAL - Vitals Vital signs reviewed: Yes - General General: Alert and oriented X 3, No acute distress, Well developed/nourished - Cardiac Cardiac: RRR, No murmur, No gallop, Strong equal pulses - Respiratory Respiratory: No respiratory distress, Other (Diminished bilaterally) - Abdomen Abdomen: Normal bowel sounds, Soft, Non tender - Derm Derm: Normal color - Extremities Extremities: Other (3+ bilateral pitting edema bilateral lower extremities) Results - Vitals Vitals: Vital Signs - 24 hr 09/20/23 09/20/23 09/20/23 12:13 12:18 14:18 Temperature 37 C 37.0 C 36.8 C Heart Rate 102 H 102 H 90 Respiratory 18 18 16 Rate Blood Pressure 194/102 H 194/102 H 160/90 H O2 Saturation 95 95 96 09/20/23 09/20/23 16:00 17:19 Temperature 36 C L Heart Rate 78 Respiratory 19 Rate Blood Pressure 212/83 H 195/85 H O2 Saturation 96 Oxygen O2 Source Room air - EKG (time done) 1222 EKG releavant findings:: EKG personally interpreted by author of this note. Relevant findings are: Rate: Rate (enter#) (99) Rhythm: NSR [place]: Normal Intervals: Normal [place], QRS normal QRS: Normal Ischemia: Normal ST segments Computer interpretation: Agree with computer - Labs Labs: Laboratory Tests 09/20/23 09/20/23 09/20/23 12:46 12:46 12:46 WBC 8.5 RBC 4.00 L Hgb 11.9 L Hct 36.9 L MCV 92.3 MCH 29.8 MCHC 32.2 RDW 12.5 Plt Count 387 MPV 9.6 Neut # (Auto) 5.9 Lymph # (Auto) 1.7 [place] # (Auto) 0.7 Eos # (Auto) 0.2 Baso # (Auto) 0.1 Absolute Nucleated RBC 0.00 Nucleated RBC % 0.0 Sodium 135 Potassium 4.8 H Chloride 103 Carbon Dioxide 22 Anion Gap 10.0 BUN 81 H* Creatinine 1.4 H Estimated GFR (MDRD) 38 L Glucose 128 H Calcium 8.4 L Troponin I High Sens B-Natriuretic Peptide 310 H 09/20/23 12:46 WBC RBC Hgb Hct MCV MCH MCHC RDW Plt Count MPV Neut # (Auto) Lymph # (Auto) [place] # (Auto) Eos # (Auto) Baso # (Auto) Absolute Nucleated RBC Nucleated RBC % Sodium Potassium Chloride Carbon Dioxide Anion Gap BUN Creatinine Estimated GFR (MDRD) Glucose Calcium Troponin I High Sens 18.7 H* B-Natriuretic Peptide - Rads (name of study) Chest Xray Relevant Findings:: Final report received, EMP independent interpretation of test, Other (Chest x-ray reveals mild pulmonary edema with bilateral pleural effusions) PD Medical Decision Making - ED course ED course: 63 yo Female here for 3 days of worsening SOB and BLE swelling. CBC does not reveal any leukocytosis, mild anemia hemoglobin 11.9. BMP was complete she is slightly hyperkalemic potassium 4.8, blood sugar 128, BNP elevated at 310, BUN critically elevated at 81, with a GFR 38. Chest x-ray reveals mild pulmonary edema with bilateral pleural effusions. Because of patient's hypertension and fluid volume overload we are doing a one- time dose of 40 mg IV furosemide as well as one-time dose of 1.25 mg IV enalaprilat. Pt was offered to stay here for hospitalization for further cardiac work up including an echo and diuretics But patient was informed that she would most likely need to be transferred to another facility as our echo is not here until Saturday. Patient said that she would like to opt to go home at this time with oral Lasix and increased dose of lisinopril and close follow-up with primary care provider for an outpatient echocardiogram. Patient was given a new prescription of lisinopril, at home right now she is taking 2.5 mg lisinopril daily her lisinopril prescription was increased to 10 mg daily. She was also given a 3-day course of oral furosemide to help with ongoing diuresing. Patient was told the urgency and importance of following up with her primary care provider for an outpatient echocardiogram and repeat labs. She is given very strict return precautions and understands the plan for disch arge. Departure - Departure Disposition: Home, Self Care Clinical Impression: CHF (congestive heart failure) Qualifiers: Heart failure type: unspecified Heart failure chronicity: acute on chronic Qualified Code(s): I50.9 - Heart failure, unspecified [id number] kidney injury Qualifiers: Acute renal failure type: unspecified Chronic kidney disease stage: unspecified stage Qualified Code(s): N17.9 - Acute kidney failure, unspecified Condition: Good Instructions: Heart Failure Dc Prescriptions: Furosemide [Lasix] 40 mg PO DAILY #3 tablet Lisinopril [Zestril] 10 mg PO DAILY #30 tablet Comments: Thank you for trusting us with your care. I do believe that the symptoms you are experiencing in relation to the shortness of breath and swollen legs are related to a condition called heart failure. It is very important that you increase your blood pressure medication which is called lisinopril. At home right now you are taking 2.5 mg but I have increased your lisinopril to 10 mg daily and I have sent this prescription to [facility] in [place]. You have already taken the first dose here in the emergency department so you do not need to start taking this until tomorrow. We have also given you a medication to help you urinate more frequently to get this extra fluid off of your body. This is called furosemide also known as Lasix. I have given you a prescription of this as well you will take 40 mg, 1 pill daily in the morning for the next 3 days. You have already taken this medication as well in the emergency department tonight so you do not need any additional doses tonight. It is very important that you follow-up with your primary care provider to have your labs reevaluated to check your kidney function and asked your primary care provider to order an outpatient echocardiogram to evaluate how severe your heart failure is. Please have a very low threshold to come back to the emergency department if you are starting to develop any chest pain, shortness of breath, worsening swelling, or any other concerning symptoms. Forms: PCP List
[2023-09-20] MEDS ORDERED: ONDANSETRON 4 MG/2 ML VIAL IVP STA (13:46)
[2023-09-20 14:23] VITALS: O2SAT 96
[2023-09-20] MEDS ORDERED: ENALAPRILAT 1.25 MG/ML VIAL IVP STA (14:53)
[2023-09-20] MEDS ORDERED: lisinopriL 5 MG TABLET PO STA (16:56)
[2023-09-20 17:33] VITALS: BP 195/85
[2023-09-21] MEDS ORDERED: FUROSEMIDE 20 MG TABLET PO SCH (09:00)
[2023-09-21] MEDS ORDERED: lisinopriL 5 MG TABLET PO SCH (09:00)
== END 2023-09-20 17:19 | disposition home or self-care (01) ==
LOC: ED 12:09
DX: I50.9 Heart failure, unspecified (principal); N17.9 Acute kidney failure, unspecified; I10 Essential (primary) hypertension
CPT/HCPCS: 36415; 71045; 80048; 83880; 84484; 85025; 93005; 96374; 96375; 99284; A9270

== ENCOUNTER 2023-10-20 18:09 | Emergency (ER) | payer MEDICARE, MEDICAID ==
[2023-10-20 18:16] VITALS: O2SAT 92
--- NOTE | 2023-10-20 18:25 | ED Physician Documentation ---
History of Present Illness - Stated complaint Stated Complaint: CHEST PX,SOA - Chief complaint Chief Complaint: General - History obtained from History obtained from: Patient, Family - Additonal information Additional information: 63-year-old woman with history of diabetes type 2, chronic kidney disease developed new onset heart failure last month was initially seen here and then wanted to go home but subsequently admitted at [facility] where she says she had a lot of testing done but does not know any of the details. Discharge instructions state that she had heart failure due to uncontrolled blood pressure. Was discharged on a monopoly of new antihypertensives and Lasix. She has had pedal edema since then with worsening shortness of breath and today around 4 PM developed some chest tightness radiating to the back. PD PAST MEDICAL HISTORY - Past Medical History Past Medical History: Yes Cardiovascular: Congestive heart failure Respiratory: None Neuro: None Endocrine/Autoimmune: Type 2 diabetes GI: Ulcers [employer]YING [employer]NER: None : None HEENT: None Psych: None Musculoskeletal: None Derm: None - Past Surgical History Past Surgical History: Yes /S[employer]YING [employer]NER: Tubal ligation - Present Medications Home Medications: Ambulatory Orders Medication Instructions Recorded Confirmed Ibuprofen [Motrin] 800 mg PO Q8H PRN #30 tablet 03/15/21 Oxycodone HCl/Acetaminophen 1 - 2 each PO Q6H PRN #14 tablet 03/15/21 [Percocet 5-325 mg Tablet] methocarbamoL [Robaxin] 500 mg PO Q6H PRN #20 tablet 03/15/21 Furosemide [Lasix] 40 mg PO DAILY #3 tablet 09/20/23 Lisinopril [Zestril] 10 mg PO DAILY #30 tablet 09/20/23 Losartan Potassium 100 mg PO DAILY #30 tab 10/20/23 - Allergies Allergies/Adverse Reactions: Allergies Allergy/AdvReac Type Severity Reaction Status Date / Time aspirin AdvReac Rash Verified 10/20/23 18:12 metformin AdvReac Dizziness Verified 10/20/23 18:12 Penicillins AdvReac Rash Verified 10/20/23 18:12 - Social History Does the pt smoke?: No Smoking Status: Never smoker Does the pt drink ETOH?: No Does the pt have substance abuse?: No - Immunizations Immunizations are current?: Yes - POLST Patient has POLST: No PD ED PE NORMAL - Vitals Vital signs reviewed: Yes - General General: Alert and oriented X 3, No acute distress - Neck Neck: Supple, no meningeal sign, No bony TTP - Cardiac Cardiac: RRR, No murmur - Respiratory Respiratory: No respiratory distress, Other (Mildly diminished at the right base) - Abdomen Abdomen: Non tender - Back Back: No CVA TTP - Derm Derm: Normal color, Warm and dry - Extremities Extremities: Other (3+ pitting pedal edema both legs, symmetric) - Neuro Neuro: Alert and oriented X 3 Results - Vitals Vitals: Vital Signs - 24 hr 10/20/23 10/20/23 18:12 19:20 Temperature 36.8 C Heart Rate 86 85 Respiratory 16 16 Rate Blood Pressure 160/60 H 178/70 H O2 Saturation 92 92 Oxygen O2 Source Room air - EKG (time done) 1840 EKG releavant findings:: EKG personally interpreted by author of this note. Relevant findings are: Rate: Rate (enter#) (86) Rhythm: NSR [place]: Normal Intervals: Normal [place] QRS: Normal Ischemia: Normal ST segments - Labs Labs: Laboratory Tests 10/20/23 10/20/23 10/20/23 19:00 19:00 19:00 WBC 9.1 RBC 4.14 L Hgb 12.1 Hct 37.3 MCV 90.1 MCH 29.2 MCHC 32.4 RDW 12.4 Plt Count 240 MPV 10.0 Neut # (Auto) 7.0 H Lymph # (Auto) 1.0 L [place] # (Auto) 0.7 Eos # (Auto) 0.4 Baso # (Auto) 0.0 Absolute Nucleated RBC 0.00 Nucleated RBC % 0.0 Sodium 138 Potassium 4.5 Chloride 104 Carbon Dioxide 26 Anion Gap 8.0 BUN 45 H Creatinine 1.4 H Estimated GFR (MDRD) 38 L Glucose 138 H Calcium 8.5 Total Bilirubin 0.6 AST 21 ALT 10 Alkaline Phosphatase 54 Troponin I High Sens 9.2 B-Natriuretic Peptide 340 H Total Protein 5.8 L Albumin 2.8 L Globulin 3.0 Albumin/Globulin Ratio 0.9 L Lipase < 10 L - Rads (name of study) Single view chest x-ray demonstrates suggestion of mild pulmonary vascular congestion. Relevant Findings:: Final report received, EMP independent interpretation of test PD Medical Decision Making - ED course ED course: Discharge summary from [facility] from September 28 received and reviewed. She presented there with CHF and MARCELLO and felt to have diastolic heart failure due to uncontrolled hypertension. She had an echo which was within normal EF and RVSP of 36. She did have bilateral pleural effusions due to the CHF. She was started on Coreg, amlodipine, and atorvastatin in addition to the Lasix and lisinopril she was already on. 63-year-old woman with recent CHF related to uncontrolled hypertension presents with shortness of breath and some chest pain. She has a completely nonischemic EKG and negative troponin. Her BNP today at 340 is much better, at [facility] when she was admitted it was 4370. Her blood pressure is up a bit, and she was given a dose of IV enalaprilat and 40 mg of Lasix here. I was counseling her on discharge though and she says she has not been taking her lisinopril because of the side effect of cough, initially my plan was to have her double it but given that this is a problem for her it makes sense that her blood pressure is up due to noncompliance related to side effects. As such I will switch her over to losartan. Departure - Departure Disposition: Home, Self Care Clinical Impression: CHF (congestive heart failure) Qualifiers: Heart failure type: diastolic Heart failure chronicity: acute on chronic Qualified Code(s): I50.33 - Acute on chronic diastolic (congestive) heart failure Chest pain Qualifiers: Chest pain type: unspecified Qualified Code(s): R07.9 - Chest pain, unspecified Condition: Good Record reviewed to determine appropriate education?: Yes Instructions: ED CHF General Prescriptions: Losartan Potassium 100 mg PO DAILY #30 tab Comments: Thankfully your heart testing is much better than when you checked in to [facility] a couple of weeks ago with respect to the congestive heart failure and there is no evidence of heart attack. Your blood pressure is still high. Initially my plan was to have you double your lisinopril. But you tell me that it causes you to have an uncontrollable cough and makes you miserable. As such I am changing you over to losartan, this does not cause that side effect but should work on your blood pressure. You also need to be doing a low-salt diet. Continue your other medications and follow-up with your doctor in 1 to 2 days for recheck. By my reckoning your medications should be as follows after that change: Amlodipine 5 mg by mouth once daily Atorvastatin 20 mg by mouth once daily Carvedilol 12.5 mg by mouth twice daily Furosemide 40 mg once a day Insulin Losartan 100 mg once a day Forms: PCP List
--- NOTE | 2023-10-20 19:00 | XRAY Report ---
PROCEDURE: Chest 1V INDICATIONS: Chest Pain TECHNIQUE: One view of the chest was acquired. COMPARISON: 09/20/2023. FINDINGS: Surgical changes and devices: None. Lungs and pleura: There is mild pulmonary vascular congestion. Blunting of bilateral costophrenic an gles are seen suggestive of small bilateral pleural effusion. No pneumothorax. No definite focal infi ltrate. Mediastinum: Mediastinal contours appear normal. Heart size is enlarged. Bones and chest wall: No suspicious bony lesions. Overlying soft tissues appear unremarkable. IMPRESSION: Suggestion of mild pulmonary vascular congestion and trace bilateral pleural effusion. No pneumothora x. No definite focal infiltrate. Reviewed by: Abram Kellogg MD on 10/20/2023 6:59 PM PST Approved by: Abram Kellogg MD on 10/20/2023 6:59 PM PST Station ID: [id number]
[2023-10-20 19:13] LABS: BASOPHILS % (AUTO) 0.3 %; EOSINOPHILS # (AUTO) 0.4 10^3/uL (0.0-0.7); EOSINOPHILS % (AUTO) 4.7 %; HCT - HEMATOCRIT 37.3 % (37.0-47.0); HGB - HEMOGLOBIN 12.1 g/dL (12.0-16.0); LYMPHOCYTES % (AUTO) 10.7 %; MEAN CORPUSCULAR HEMOGLOBIN 29.2 pg (27.0-31.0); MEAN CORPUSCULAR HGB CONC 32.4 g/dL (32.0-36.0); MEAN CORPUSCULAR VOLUME 90.1 fL (81.0-99.0); MONOCYTES # (AUTO) 0.7 10^3/uL (0.0-1.0); MONOCYTES % (AUTO) 7.7 %; NEUTROPHILS % (AUTO) 76.4 %; PLT - PLATELET COUNT 240 10^3/uL (130-450); RED BLOOD COUNT 4.14 10^6/uL (4.20-5.40); RED CELL DISTRIBUTION WIDTH 12.4 % (12.0-15.0); WHITE BLOOD COUNT 9.1 x10^3/uL (4.8-10.8)
[2023-10-20 19:35] LABS: TROPONIN I HIGH SENSITIVITY 9.2 ng/L (2.3-14.8)
[2023-10-20 19:38] LABS: ALBUMIN 2.8 g/dL (3.2-5.5); ALBUMIN/GLOBULIN RATIO 0.9 (1.0-2.2); ALKALINE PHOSPHATASE 54 IU/L (42-121); ALT ALANINE AMINOTRANSFERASE 10 IU/L (10-60); AST ASPARTATE AMINOTRANSFERASE 21 IU/L (10-42); BILIRUBIN,TOTAL 0.6 mg/dL (0.2-1.0); BUN - BLOOD UREA NITROGEN 45 mg/dL (6-20); CALCIUM 8.5 mg/dL (8.5-10.3); CARBON DIOXIDE - CO2 26 mmol/L (21-32); CHLORIDE 104 mmol/L (101-111); CREATININE 1.4 mg/dL (0.6-1.3); GFR - MDRD 38 (>89); GLUCOSE 138 mg/dL (74-104); LIPASE < 10 U/L (11-82); POTASSIUM 4.5 mmol/L (3.5-4.5); SODIUM 138 mmol/L (135-145); TOTAL PROTEIN 5.8 g/dL (6.4-8.9)
[2023-10-20] MEDS: ENALAPRILAT 1.25 MG/ML VIAL IVP STA (19:45)
[2023-10-20] MEDS: FUROSEMIDE 40 MG/4 ML VIAL IVP STA (19:51)
[2023-10-20 20:31] VITALS: BP 169/62
== END 2023-10-20 20:27 | disposition home or self-care (01) ==
LOC: ED 18:09
DX: I13.0 Hypertensive heart and chronic kidney disease with heart failure and stage 1 through stage 4 chronic kidney disease, or unspecified chronic kidney disease (principal); I50.33 Acute on chronic diastolic (congestive) heart failure; E11.22 Type 2 diabetes mellitus with diabetic chronic kidney disease; N18.9 Chronic kidney disease, unspecified; Z87.11 Personal history of peptic ulcer disease
CPT/HCPCS: 36415; 80053; 83690; 83880; 84484; 85025; 93005; 96374; 96375; 99284